=== PATIENT | male | born 1980 | race Caucasian/White ===

== ENCOUNTER 2019-04-04 15:57 | Emergency (ER) | payer MEDICAID ==
[~2019-04-04] VITALS: Ht 172.7 cm; Wt 65.8 kg
[2019-04-04] MEDS ORDERED: BIKTARVY 50-201 EACH PO (16:21)
--- NOTE | 2019-04-04 16:29 | Emergency Room Report ---
History of Present Illness General Chief Complaint: Male Urogenital Problems Source: Patient Present Illness HPI 38-year-old male presents to the emergency department complaining of hematuria x3 days. Patient reports that his hematuria symptoms have decent severity he reports he was having left-sided flank pain that he rated 3 out of 10 in severity. He reports that his pain would come and go. Denies pain at this time. Denies fevers or chills. Patient has a history of HIV he is currently taking antiretrovirals and states that his viral load is undetectable and his last CD4 count was 750. Patient denies nausea, vomiting, abdominal pain or tenderness. He denies penile discharge, genital lesions, swollen tender lymph nodes, dysuria or urinary frequency. Patient is also complaining of a painful ulcer to the right side of his tongue x 5 days, and a 3-month history of increased rhinorrhea. Denies cough, neck pain/stiffness, ECHE[place] or photophobia. Denies ulcers or rashes elsewhere in the mouth or on his skin. He states he took Mucinex with no relief. Allergies: Coded Allergies: No Known Allergies (Unverified , 04/04/19) Patient History Past Medical History: see triage record, HIV, other - Hepatitis C, Syphilis Past Surgical History: none Pertinent Family History: none Immunizations: UTD Reviewed Nursing Documentation: PMH: Agreed; PSxH: Agreed Nursing Documentation-PMH Past Medical History: No History, Except For Review of Systems All Other Systems: negative except mentioned in HPI Physical Exam Vital Signs Date Time Temp Pulse Resp B/P (MAP) Pulse Ox O2 Delivery O2 Flow Rate FiO2 04/04/19 16:14 98.2 98 20 152/99 (116) 99 Room Air Sp02 EP Interpretation: reviewed, normal General Appearance: no apparent distress, alert, GCS 15, non-toxic Head: normocephalic, atraumatic Eyes: bilateral eye normal inspection, bilateral eye PERRL ENT: hearing grossly normal, normal pharynx, normal voice, nasal congestion - clear rhinorrhea bilaterally, other - apthous ulcer on the right side of the tongue. smooth well circumscribed border. Neck: full range of motion, no meningismus, no bony tend Respiratory: chest non-tender, lungs clear, normal breath sounds, no wheezing, speaking full sentences Cardiovascular #1: regular rate, rhythm Gastrointestinal: non tender, soft Genitourinary: normal inspection, no CVA tenderness Musculoskeletal: back normal, gait/station normal, normal range of motion, non- tender Neurologic: alert, oriented x3, responsive, motor strength/tone normal, sensory intact, speech normal, grossly normal Psychiatric: judgement/insight normal Lymphatic: no adenopathy Medical Decision Making PA Attestation Dr. Paul is my supervising Physician whom patient management has been discussed with. Diagnostic Impression: Primary Impression: Hematuria Qualified Codes: R31.9 - Hematuria, unspecified Additional Impressions: UTI (urinary tract infection) Qualified Codes: N30.01 - Acute cystitis with hematuria Rhinorrhea Aphthous ulcer of tongue ER Course 38-year-old male presents to the emergency department complaining of hematuria x3 days. Patient reports that his hematuria symptoms have decent severity he reports he was having left-sided flank pain that he rated 3 out of 10 in severity. He reports that his pain would come and go. Denies pain at this time. Denies fevers or chills. Patient has a history of HIV he is currently taking antiretrovirals and states that his viral load is undetectable and his last CD4 count was 750. Patient denies nausea, vomiting, abdominal pain or tenderness. He denies penile discharge, genital lesions, swollen tender lymph nodes, dysuria or urinary frequency. Patient is also complaining of a painful ulcer to the right side of his tongue x 5 days, and a 3-month history of increased rhinorrhea. Denies cough, neck pain/stiffness, [place] or photophobia. Denies ulcers or rashes elsewhere in the mouth or on his skin. He states he took Mucinex with no relief. Differential diagnosis included was not limited to renal stone, cystitis, aortic aneurysm, renal artery dissection, UTI just to name a few. Vital signs: are WNL, pt. is afebrile H&PE are most consistent with possible passed renal calculi or UTI. pt. non- toxic in appearance, NAD, no CVA tenderness ORDERS: -UA: some RBC's, elevated inflammatory markers and few bacteria with no squamous - will treat as UTI ED INTERVENTIONS: None required at this time. The patient is advised followup with his urologist 1-2 days. Patient is advised to return if any worsening condition or if any changes in status that are concerning or increased difficulty voiding.. -I do not identify an emergent condition at this time. With current presentation , pt. is stable for close outpatient follow up and conservative treatment. D/ w pt. to return promptly to ED with worsening or new symptoms.- Pt. verbalizes' understanding and agreement with proposed treatment plan.proposed treatment plan. DISCHARGE: At this time pt. is stable for d/c to home. Will provide printed patient care instructions, and any necessary prescriptions. Care plan and follow up instructions have been discussed with the patient prior to discharge. Labs Test 04/04/19 16:44 Urine Color Yellow Urine Appearance Clear Urine pH 6 (4.5-8.0) Urine Specific [place] 1.020 (1.005-1.035) Urine Protein 1+ (NEGATIVE) Urine Glucose (UA) Negative (NEGATIVE) Urine Ketones 1+ (NEGATIVE) Urine Blood 2+ (NEGATIVE) Urine Nitrite Negative (NEGATIVE) Urine Bilirubin Negative (NEGATIVE) Urine Urobilinogen 4 MG/DL (0.0-1.0) Urine Leukocyte Esterase 2+ (NEGATIVE) Urine RBC 2-4 /HPF (0 - 0) Urine WBC 5-10 /HPF (0 - 0) Urine Squamous Epithelial Cells None /LPF (NONE/OCC) Urine Bacteria Few /HPF (NONE) Last Vital Signs Date Time Temp Pulse Resp B/P (MAP) Pulse Ox O2 Delivery O2 Flow Rate FiO2 04/04/19 16:14 98.2 98 20 152/99 (116) 99 Room Air Status: improved Disposition: HOME, SELF-CARE Condition: Stable Scripts Cetirizine Hcl* (ZYRTEC*) 10 Mg Tablet 10 MG ORAL DAILY, #30 TAB 0 Refills Prov: Itzel Bruno 04/04/19 Chlorhexidine Gluconate (CHLORHEXIDINE GLUCONATE) 473 Ml Mouthwash 15 ML MM TID, #473 ML Prov: Itzel Bruno 04/04/19 Cephalexin* (KEFLEX*) 500 Mg Capsule 500 MG ORAL EVERY 12 HOURS for 7 Days, #14 CAP 0 Refills Prov: Itzel Bruno 04/04/19 Patient Instructions: Hematuria, Adult, Urinary Tract Infection Additional Instructions: Take medications as directed. Follow up with a Primary Care Provider in 3-5 days, even if your symptoms have resolved. Return sooner to ED if new symptoms occur, or current symptoms become worse. - Please note that this Emergency Department Report was dictated using [employer] ironer hand technology software, occasionally this can lead to erroneous entry secondary to interpretation by the dictation equipment. Itzel Bruno Apr 04, 2019 16:29
[2019-04-04 16:30] VITALS: BP 152/99
--- NOTE | 2019-04-04 16:30 | NUR ---
ED Nurse Note: pt waslked in c/o recent hematuria after having pain to kidney area for a few months per pt. pt also relates increased mucous and sore to tongue. pt was seen by shari villalpando. will continue to monitor.
--- NOTE | 2019-04-04 16:45 | NUR ---
ED Nurse Note: pt was able to give urine and was sent to lab.
[2019-04-04 16:50] LABS: APPEARANCE,URINE CLEAR; BILIRUBIN, URINE NEGATIVE (NEGATIVE); GLUCOSE, URINE (UA) NEGATIVE (NEGATIVE); KETONES,URINE 1+ (NEGATIVE); LEUKOCYTE ESTERASE ,URINE 2+ (NEGATIVE); NITRITE,URINE NEGATIVE (NEGATIVE); PH,URINE 6 (4.5-8.0); PROTEIN,URINE 1+ (NEGATIVE); UROBILINOGEN,URINE 4 MG/DL (0.0-1.0)
[2019-04-04 16:53] LABS: COLOR,URINE YELLOW
[2019-04-04] MEDS ORDERED: ZYRTEC10 MG ORAL (17:19)
[2019-04-04] MEDS ORDERED: CEPHALEXIN500 MG ORAL (17:19)
[2019-04-04] MEDS ORDERED: CHLORHEXIDINE473 ML MM (17:19)
[2019-04-04 17:25] VITALS: BP 145/90
--- NOTE | 2019-04-04 17:25 | NUR ---
ER DISCHARGE NOTE: Patient is cleared to be discharged per ERMD, pt is aox4, on room air, with stable vital signs. pt was given dc and prescription instructions, pt was able to verbalize understanding, pt id band removed without complications. pt is able to ambulate with steady gait. pt took all belongings.
== END 2019-04-04 17:25 | disposition home or self-care (01) ==
LOC: EMR 16:53
DX: R31.9 Hematuria, unspecified (principal); N30.01 Acute cystitis with hematuria; J34.89 Other specified disorders of nose and nasal sinuses; K12.0 Recurrent oral aphthae; B20 Human immunodeficiency virus [HIV] disease
CPT/HCPCS: 81003; 99283